=== PATIENT | female | born 2000 | race Caucasian/White ===

== ENCOUNTER 2024-01-19 10:35 | Emergency (ER) | payer OTHER, SELFPAY ==
[2024-01-19 10:37] VITALS: BP 143/97; PULSE 119; RESP 22; TEMP 36.7; O2SAT 100; BMI 26.8
[2024-01-19 10:38] VITALS: BP 143/97; PULSE 119; RESP 22; TEMP 36.7; O2SAT 100
--- NOTE | 2024-01-19 11:02 | EDS_ITS ---
HPI History of Present Illness Chief Complaint: Abscess Narrative Narrative: 23-year-old female who denies significant past medical history presents with pain and swelling on her right buttocks cheek that she has had for the last 3 days. She denies any fevers or chills, no nausea or vomiting, no exacerbating or alleviating factors. She states it is more painful when she sits, and the area seems to be getting larger. No past medical history of diabetes. No pain with defecation. Her sister who is an RN mac a line around the reddened area, and they state that the redness is getting larger. She presents from urgent care, mildly anxious, because she was told that this is a tunneling abscess and that she needed to come to the emergency department. PFSH PFSH Medical History no medical history Home Medications ?Medication ?Instructions ?Recorded ?Last Taken ?Type etonogestrel 0.12 mg-ethinyl vag ring vaginal 01/19/24 Unknown History estradiol 0.015 mg/24 hr vaginal ring hydrocodone-acetaminophen 5-325mg 1 tab PO Q6H PRN PRN Pain 3 days 01/19/24 Unknown Rx 5mg-325mg #10 TABLETS sulfamethoxazole 800 1 tab PO BID 7 days #14 tabs 01/19/24 Unknown Rx mg-trimethoprim 160 mg tablet (Bactrim DS) Allergy/AdvReac Type Severity Reaction Status Date / Time No Known Allergies Allergy Verified 01/19/24 10:36 Family History no significant family his Surgical History no surgical history Social History Smoking Status: Never smoker ROS ROS ED ROS Narrative Constitutional: No fever, no chills. HEENT: No sore throat. No neck pain. No loss of vision. No rhinorrhea. Cardiovascular: No chest pain. No palpitations. No pedal edema. Respiratory: No cough, no shortness of breath. Abdominal: No abdominal pain. No nausea. No vomiting. No pain with defecation. Skin: Positive for cyst on right buttocks that is growing larger with increasing redness and painful to touch. Also painful with sitting and pressure. EXAM Physical Exam Narrative Exam Narrative: Afebrile. Vital signs noted. Nontoxic-appearing. Cardiovascular examination reveals a mild tachycardia. Respiratory examination shows no distress, lungs clear to auscultation bilaterally. Abdomen soft nontender with normal active bowel sounds. No guarding or rebound. Inspection of the right buttocks, on the lower portion, is a mildly fluctuant area with erythema consistent with buttocks abscess. It is not near the anal opening, but more towards the perineum, but still on the buttocks itself. Const Vital Signs: 01/19/24 10:37 01/19/24 10:38 01/19/24 12:26 Temperature 98.0 F 98.0 F 97.9 F Temperature Source Oral Oral Pulse Rate 119 H 119 H 78 Respiratory Rate 22 H 22 H 16 Blood Pressure 143/97 H 143/97 H 136/87 H Blood Pressure Mean 112 112 103 Pulse Ox 100 100 99 Oxygen Delivery Method Room Air Room Air MDM MDM MDM Narrative Medical decision making narrative: Differential diagnosis includes but not limited to cutaneous abscess of the buttocks versus perianal abscess versus perineal abscess. Given the location, this may be on the buttocks and it may be more of an infected inclusion cyst with cellulitis as well. I discussed incision and drainage with the patient and she is agreeable. I do not feel that she requires laboratory work or CT imaging as I have very low concern for fistula or tunneling abscess/rectal abscess. She was given a dose of Matthews here and Bactrim as well. After incision and drainage, patient was written prescriptions for Bactrim DS to take for 7 days twice a day, as well as for 3 days worth of Matthews. She will remove the packing in 2 days and follow-up with general surgery for wound check. She was told of the possibility of reaccumulation and continued infection. I feel she can be discharged to follow-up. Return instructions to the emergency department were reviewed. Disposition is discharged home in stable condition. Procedures Other Procedures Procedure(s): Incision and drainage: ChloraPrep was used on the skin prior to injection of lidocaine. Approximately 5 mL of lidocaine inserted subcutaneously for analgesia. Incision made, stellate, with #11 blade. Moderate amount of purulent material, as well as infected inclusion cyst material. Area deloculated and irrigated. Half-inch plain packing strip inserted with double tail exposed. Patient will remove it in 48 hours. Patient tolerated procedure well. Discharge Plan Triage Chief Complaint: Abscess ED Provider: Oswaldo Coleman Dx/Rx/DC Orders Clinical Impression: Abscess of buttock, right, Infected inclusion cyst Instructions: ED Abscess Incision And Drainage Prescriptions: New sulfamethoxazole-trimethoprim [Bactrim DS] 800-160 mg tablet 1 tab PO BID 7 Days Qty: 14 0RF hydrocodone-acetaminophen 5-325 mg tablet 1 tab PO Q6H PRN PRN (Reason: Pain) 3 Days Qty: 10 0RF No Action etonogestrel-ethinyl estradiol 0.12-0.015 mg/24 hr ring vaginal Stand Alone Forms: ED Work / School Excuse Primary Care Provider: Care Physician,No Primary Referrals: Anurag Olivares MD [Med Staff - Active Staff] - 2 Days for wound check Care Physician,No Primary [Primary Care Provider] - Activity Restrictions/Additional Instructions: Remove packing in 48 hours. You may need to wet the 2 tails prior to removal. Return with fever, increased pain, new or worsening symptoms. May need to follow-up with Dr. Olivares with general surgery in 2 days for a wound check. Print Language: Persian Disposition Disposition: Home, Self Care
[2024-01-19] MEDS: Lidocaine 1% (20 ml mdv) 20 ML Vial 10 ML INFILT (11:04)
[2024-01-19] MEDS: HYDROcodone Bitartrate/Apap 5/325 Tablet PO (11:04)
[2024-01-19] MEDS: Smz/Tmp Ds Tablet 1 TABLET PO (11:04)
[2024-01-19 12:26] VITALS: BP 136/87; PULSE 78; RESP 16; TEMP 36.6; O2SAT 99
== END 2024-01-19 12:41 | disposition home or self-care (01) ==
PROVIDERS: Emergency Provider Emergency Medicine; Visit Provider Emergency Medicine
DX: L02.31 Cutaneous abscess of buttock (principal); L72.0 Epidermal cyst
CPT/HCPCS: 10060; 99283